=== PATIENT | male | born 1970 | race Caucasian/White ===

== ENCOUNTER 2018-08-22 19:30 | Emergency (ER) | payer MEDICAID, OTHER ==
[~2018-08-22] VITALS: Ht 180.3 cm; Wt 68.0 kg
--- NOTE | 2018-08-22 20:13 | NUR ---
DR. MARQUEZ AT BEDSIDE FOR MSE.
[2018-08-22] MEDS ORDERED: NEOMY/BACITRA/POLYMYXIN B OINT UD PACKET TP ONE ×2 (20:15→20:20)
[2018-08-22] MEDS ORDERED: SULFAMETH/TRIMETH 800/160 MG TABLET PO ONE (20:15)
[2018-08-22] MEDS ORDERED: SULFAMETH/TRIMETH 800/160 MG TABLET ONE (20:20)
--- NOTE | 2018-08-22 20:42 | NUR ---
Patient discharged to home in stable conditon. Written and verbal after care instructions given. Patient verbalizes understanding of instructions. PATIENT LEFT WITH STABLE GAIT.
[2018-08-22 20:43] VITALS: BP 129/75
== END 2018-08-22 20:44 | disposition home or self-care (01) ==
LOC: ER 19:33
DX: L03.115 Cellulitis of right lower limb (principal); L03.031 Cellulitis of right toe; B35.1 Tinea unguium; F17.200 Nicotine dependence, unspecified, uncomplicated; F15.10 Other stimulant abuse, uncomplicated; Z59.0 Homelessness
CPT/HCPCS: 73630; A4663

== ENCOUNTER 2018-09-29 12:46 | Emergency (ER) | payer OTHER ==
[~2018-09-29] VITALS: Ht 172.7 cm; Wt 68.0 kg
--- NOTE | 2018-09-29 13:25 | NUR ---
RLE WOUND CLEANSED W/ NS, APPLIED TRIPLE ANTIBIOTIC TOPICALLY, DRESSED W/ CLEAN DRESSING.
[2018-09-29] MEDS ORDERED: NEOMY/BACITRA/POLYMYXIN B OINT UD PACKET TP ONE ×2 (13:29→13:30)
[2018-09-29] MEDS ORDERED: SULFAMETH/TRIMETH 800/160 MG TABLET ONE (13:29)
[2018-09-29] MEDS ORDERED: SULFAMETH/TRIMETH 800/160 MG TABLET PO ONE (13:30)
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
--- NOTE | 2018-09-29 13:39 | NUR ---
Patient discharged to home in stable conditon. Written and verbal after care instructions given. Patient verbalizes understanding of instructions. PT D/C W/ PRSECRIPTION. ALL BELONGINGS W/ PT. PT SELF-AMBULATED W/O DIFFICULTY. PT PROVIDED W/ [facility]. PT REFUSES FURTHER ASSISTANCE W/ RETIREMENT FINDING, REFUSES TRANSPORTATION AND STATES HE WILL ARRANGE FOR HIS OWN TRANSPORTATION AND RETURN TO PRIOR LIVING ARRANGEMENT.
[2018-09-29 13:40] VITALS: BP 130/80
== END 2018-09-29 13:41 | disposition home or self-care (01) ==
LOC: ER 12:48
DX: S80.811A Abrasion, right lower leg, initial encounter (principal); L03.115 Cellulitis of right lower limb; L08.9 Local infection of the skin and subcutaneous tissue, unspecified; F15.10 Other stimulant abuse, uncomplicated; Z59.0 Homelessness; V19.9XXA Pedal cyclist (driver) (passenger) injured in unspecified traffic accident, initial encounter; Y93.89 Activity, other specified; Y92.89 Other specified places as the place of occurrence of the external cause; Y99.8 Other external cause status
CPT/HCPCS: A4663

== ENCOUNTER 2019-03-31 14:10 | Emergency (ER) | payer OTHER ==
[~2019-03-31] VITALS: Ht 180.3 cm; Wt 70.3 kg
--- NOTE | 2019-03-31 14:38 | NUR ---
Dr. Gaspar here to see pt for MSE.
--- NOTE | 2019-03-31 14:50 | NUR ---
Patient discharged to home in stable conditon. Written and verbal after care instructions given. Patient verbalizes understanding of instructions.
== END 2019-04-18 12:47 | disposition home or self-care (01) ==
LOC: ER 14:13
DX: B35.6 Tinea cruris (principal); F17.210 Nicotine dependence, cigarettes, uncomplicated; F15.10 Other stimulant abuse, uncomplicated
CPT/HCPCS: A4663

== ENCOUNTER 2019-05-06 21:36 | Emergency (ER) | payer OTHER ==
[~2019-05-06] VITALS: Ht 177.8 cm; Wt 79.4 kg
--- NOTE | 2019-05-06 21:48 | NUR ---
Pt ambulated into ER c/o right hand redness and swelling. Pt states pain 7/10 with hand movement. No acute distress noted.
--- NOTE | 2019-05-06 21:50 | NUR ---
DR GRIMM at bedside for MSE.
[2019-05-06] MEDS ORDERED: ONDANSETRON 4 MG/2 ML VIAL IV ONE (22:00)
[2019-05-06] MEDS ORDERED: VANCOMYCIN IV 1,000 MG in IV DEXTROSE 5% 250 ML IV ONE (22:00)
[2019-05-06] MEDS ORDERED: HYDROMORPHONE 1 MG/1 ML DISP.SYRIN IV ONE (22:00)
[2019-05-06] MEDS ORDERED: IV NORMAL SALINE 1000 ML BAG IV ONE (22:00)
[2019-05-06] MEDS ORDERED: ONDANSETRON 4 MG/2 ML VIAL ONE (22:04)
[2019-05-06] MEDS ORDERED: HYDROMORPHONE 1 MG/1 ML DISP.SYRIN ONE (22:04)
[2019-05-06] MEDS ORDERED: VANCOMYCIN IV 200 ML ONE (22:05)
[2019-05-06 23:30] VITALS: BP 121/80
--- NOTE | 2019-05-06 23:31 | NUR ---
Patient discharged to home in stable conditon. Written and verbal after care instructions given. Patient verbalizes understanding of instructions. ALl belongings with patient.
== END 2019-05-06 23:31 | disposition home or self-care (01) ==
LOC: ER 21:36
DX: L03.113 Cellulitis of right upper limb (principal); F17.210 Nicotine dependence, cigarettes, uncomplicated; F15.10 Other stimulant abuse, uncomplicated
CPT/HCPCS: 96374; 96375; 99283; J1170; J2405; J3370; A4663; J7030

== ENCOUNTER 2019-10-10 23:21 | Emergency (ER) | payer OTHER ==
[~2019-10-10] VITALS: Ht 180.3 cm; Wt 70.3 kg
--- NOTE | 2019-10-11 02:50 | NUR ---
Patient discharged to home in stable conditon. Written and verbal after care instructions given. Patient verbalizes understanding of instructions. ALL BELONGINGS W/ PT AMBULATORY W/ STABLE GAIT
[2019-10-11 02:55] VITALS: BP 133/88
== END 2019-10-11 02:55 | disposition home or self-care (01) ==
LOC: ER 23:24
DX: M54.5 Low back pain (principal); M54.2 Cervicalgia; F17.210 Nicotine dependence, cigarettes, uncomplicated
CPT/HCPCS: A4663

== ENCOUNTER 2020-04-28 02:20 | Emergency (ER) | payer OTHER ==
[~2020-04-28] VITALS: Ht 180.3 cm; Wt 70.3 kg
--- NOTE | 2020-04-28 02:39 | NUR ---
Dr. Andrade at bedside for MSE.
[2020-04-28] MEDS ORDERED: ONDANSETRON 4 MG/2 ML VIAL IM ONE (02:45)
[2020-04-28] MEDS ORDERED: HYDROMORPHONE 1 MG/1 ML DISP.SYRIN IM ONE (02:45)
[2020-04-28] MEDS ORDERED: ONDANSETRON 4 MG/2 ML VIAL ONE (02:46)
[2020-04-28] MEDS ORDERED: HYDROMORPHONE 2 MG/1 ML DISP.SYRIN ONE (02:46)
[2020-04-28 02:51] VITALS: BP 140/65
--- NOTE | 2020-04-28 02:51 | NUR ---
Patient discharged to home in stable condition. Written and verbal after care instructions given. Patient verbalizes understanding of instructions. Stressed follow up or return to ER for worsening s/s. Patient left with stable gait.
== END 2020-04-28 02:52 | disposition home or self-care (01) ==
LOC: ER 02:24
DX: G89.29 Other chronic pain (principal); M54.9 Dorsalgia, unspecified; M54.2 Cervicalgia; F17.210 Nicotine dependence, cigarettes, uncomplicated
CPT/HCPCS: 96372 ×2; 99284; J1170; J2405; A4663

== ENCOUNTER 2021-01-01 15:17 | Emergency (ER) | payer OTHER ==
[~2021-01-01] VITALS: Ht 180.3 cm; Wt 68.0 kg
--- NOTE | 2021-01-01 15:50 | NUR ---
at bedside for assessment
[2021-01-01] MEDS ORDERED: TETRACAINE HCL 0.5% OPHT DROP 2 ML BOTTLE OP ONE (16:00)
[2021-01-01] MEDS ORDERED: FLUORESCEIN SODIUM 1 MG STRIP OP ONE (16:00)
[2021-01-01] MEDS ORDERED: TETRACAINE HCL 0.5% OPHT DROP 2 ML BOTTLE ONE (16:01)
[2021-01-01] MEDS ORDERED: FLUORESCEIN SODIUM 1 MG STRIP ONE ×2 (16:01→17:46)
[2021-01-01] MEDS ORDERED: SULF15DR6 RIGHTEYE (18:29)
[2021-01-01] MEDS ORDERED: AMOX-430 PO (18:29)
--- NOTE | 2021-01-01 18:42 | NUR ---
Patient discharged to home in stable condition. Instructed to follow up in two days, no signs of acute distress noted. Written and verbal after care instructions given. Patient verbalizes understanding of instructions. Stressed follow up or return to ER for worsening s/s.
[2021-01-01 18:44] VITALS: BP 122/79
== END 2021-01-01 18:40 | disposition home or self-care (01) ==
LOC: ER 15:17
DX: L03.213 Periorbital cellulitis (principal); H10.9 Unspecified conjunctivitis; F17.210 Nicotine dependence, cigarettes, uncomplicated
CPT/HCPCS: 70480; A4663

== ENCOUNTER 2022-01-01 09:39 | Emergency (ER) | payer OTHER ==
[~2022-01-01] VITALS: Ht 180.3 cm; Wt 69.4 kg
[~2022-01-01 09:39] MED LIST: AMOX-430 PO; SULF15DR6 RIGHTEYE
--- NOTE | 2022-01-01 10:02 | NUR ---
Patient ambulatory, alert and orientedx4 complaints of right lower leg pain 7/10 for 4 days. Noted with redness,swelling and small open wound on right lower leg. Denies nausea,vomiting,abdominal pain. Vitals stable.
--- NOTE | 2022-01-01 10:04 | NUR ---
MD at bedside, medical screening exam in process.
[2022-01-01] MEDS ORDERED: CEphaleXIN 500 MG CAPSULE ONE (10:11)
[2022-01-01] MEDS ORDERED: SULFAMETH/TRIMETH 800/160 MG TABLET ONE (10:12)
[2022-01-01] MEDS ORDERED: HYDROCODONE/APAP 5-325MG TABLET ONE (10:12)
[2022-01-01] MEDS ORDERED: CEphaleXIN 500 MG CAPSULE PO ONE (10:15)
[2022-01-01] MEDS ORDERED: SULFAMETH/TRIMETH 800/160 MG TABLET PO ONE (10:15)
[2022-01-01] MEDS ORDERED: HYDROCODONE/APAP 5-325MG TABLET PO ONE (10:15)
[2022-01-01] MEDS ORDERED: CEPH500C2 PO (10:20)
[2022-01-01] MEDS ORDERED: IBUP-1955 PO (10:20)
[2022-01-01] MEDS ORDERED: SULF1TAB48 PO (10:20)
--- NOTE | 2022-01-01 10:26 | NUR ---
Patient discharged to home in stable condition. Written and verbal after care instructions given. Patient verbalizes understanding of instructions. Stressed follow up or return to ER for worsening s/s. Instructed not to drive.
[2022-01-01 10:28] VITALS: BP 131/85
== END 2022-01-01 10:29 | disposition home or self-care (01) ==
LOC: ER 09:41
DX: S81.801A Unspecified open wound, right lower leg, initial encounter (principal); L03.115 Cellulitis of right lower limb; X58.XXXA Exposure to other specified factors, initial encounter; Y92.89 Other specified places as the place of occurrence of the external cause; F17.210 Nicotine dependence, cigarettes, uncomplicated
CPT/HCPCS: A4663

== ENCOUNTER 2024-04-25 13:51 | Emergency (ER) | payer OTHER ==
[~2024-04-25] VITALS: Ht 180.3 cm; Wt 70.3 kg
[~2024-04-25 13:51] MED LIST changes: +CEPH500C2 PO; +IBUP-1955 PO; +SULF1TAB48 PO
[2024-04-25] MEDS ORDERED: KETOROLAC TROMETHAMINE 30 MG INJ ONE (14:27)
[2024-04-25] MEDS: KETOROLAC TROMETHAMINE 30 MG INJ IM ONE (14:30)
[2024-04-25] MEDS ORDERED: IBUP-1955 PO (15:23)
== END 2024-04-25 15:27 | disposition home or self-care (01) ==
LOC: ER 13:51
DX: M25.561 Pain in right knee (principal); Z60.2 Problems related to living alone; Z79.1 Long term (current) use of non-steroidal anti-inflammatories (NSAID); Z79.899 Other long term (current) drug therapy
CPT/HCPCS: 99283; 73560; 96372; J1885; A4606; A4663